=== PATIENT | male | born 1970 | race Caucasian/White ===

== ENCOUNTER 2018-11-18 08:04 | Emergency (ER) | payer OTHER ==
[~2018-11-18] VITALS: Ht 162.6 cm; Wt 88.0 kg
[2018-11-18 08:06] VITALS: BP 132/78
--- NOTE | 2018-11-18 08:08 | NUR ---
PT AMBULATES TO BED 12
--- NOTE | 2018-11-18 08:18 | NUR ---
c/o right knee pain and mid back pain x1 wk s/p squatting weights possible injury, swelling ---ambulatory with steady gait . DENIES N/V/D; SKIN IS PINK/WARM/DRY; AAOX4 WITH EVEN AND STEADY GAIT; LUNGS CLEAR BL; HR EVEN AND REGULAR; PT DENIES ANY FEVER, CP, SOB, OR COUGH AT THIS TIME; PATIENT STATES PAIN OF 7/10 AT THIS TIME; VSS; PATIENT POSITIONED FOR COMFORT; HOB ELEVATED; BEDRAILS UP X2; BED DOWN. ER MD MADE AWARE OF PT STATUS.
[2018-11-18] MEDS ORDERED: traMADol 50 MG TAB PO ONE (08:25)
[2018-11-18] MEDS ORDERED: KETOROLAC 60 MG/2 ML VIAL IM ONE (08:25)
[2018-11-18 09:21] VITALS: BP 132/78
== END 2018-11-18 09:22 | disposition home or self-care (01) ==
LOC: MED 08:04
DX: M17.0 Bilateral primary osteoarthritis of knee (principal); M16.0 Bilateral primary osteoarthritis of hip; M47.896 Other spondylosis, lumbar region
CPT/HCPCS: 96372; 99283; J1885

== ENCOUNTER 2018-12-04 16:28 | Emergency (ER) | payer OTHER ==
[~2018-12-04] VITALS: Ht 162.6 cm; Wt 90.8 kg
[2018-12-04 16:48] VITALS: BP 133/73
--- NOTE | 2018-12-04 17:26 | NUR ---
48/ M BIB SELF, C/O OCCASSIONAL NON RADIATING LT SIDED CHEST PAIN 02/04, PATIENT STATES YESTERDAY HE FELT HIS HEART RACE AFTER BEING ON THE TREADMILL AT A WALKING PACE, TODAY HE WAS LAYING IN BED WHEN HE FELT HIS HEART RACE AGAIN. DENIES PAIN AT THIS TIME, LOC, NVD, SOB, WEAKNESS, DIZZINESS, ABDOMINAL PAIN, NUMBNESS OR TINGLING. PATIENT IS AOX4, CLEAR SPEECH, STEADY GAIT, ATTACHED TO BEDSIDE MONITOR. SAFETY PRECAUTIONS IN PLACE.
[2018-12-04 17:57] LABS: BASOPHILS % (AUTO) 0.5 % (0.0-2.0); EOSINOPHILS # (AUTO) 0.2 K/uL (0-0.4); HEMATOCRIT 28.4 % (36-52); HEMOGLOBIN 8.4 g/dL (12.0-18.0); LYMPHOCYTES # (AUTO) 2.2 K/uL (2.0-11.5); LYMPHOCYTES % (AUTO) 29.2 % (20.5-51.1); MEAN CORPUSCULAR HEMOGLOBIN 19 pg (27-31); MEAN CORPUSCULAR HGB CONC 30 g/dL (33-37); MEAN CORPUSCULAR VOLUME 64.4 fL (80-94); MONOCYTES # (AUTO) 0.6 K/uL (0.8-1.0); MONOCYTES % (AUTO) 7.6 % (1.7-9.3); NEUTROPHILS # (AUTO) 4.6 K/uL (1.8-7.7); NEUTROPHILS % (AUTO) 59.7 % (42.2-75.2); PLATELET COUNT (AUTO) 271 K/uL (140-450); RED BLOOD CELL COUNT(AUTO) 4.42 MIL/uL (4.20-6.10); RED CELL DISTRIBUTION WIDTH 21.1 % (11.6-13.7); WHITE BLOOD COUNT (AUTO) 7.7 K/uL (4.8-10.8)
--- NOTE | 2018-12-04 18:50 | NUR ---
PATIENT DENIES CHEST PAIN AND SOB SINCE ARRIVAL.
[2018-12-04 19:01] LABS: ANION GAP 11.3 (8-16); CARBON DIOXIDE 26.3 mmol/L (21-32); CREATININE 0.7 mg/dL (0.7-1.3); POTASSIUM 3.6 mmol/L (3.5-5.1)
[2018-12-04 19:10] VITALS: BP 130/79
--- NOTE | 2018-12-04 19:10 | NUR ---
Patient discharged with v/s stable. Written and verbal after care instructions given and explained. Patient alert, oriented and verbalized understanding of instructions. Ambulatory with steady gait. All questions addressed prior to discharge. ID band removed. Patient advised to follow up with PMD. Rx of IRON given. Patient educated on indication of medication including possible reaction and side effects. Opportunity to ask questions provided and answered.
== END 2018-12-04 19:10 | disposition home or self-care (01) ==
LOC: MED 16:28
DX: R07.89 Other chest pain (principal); D64.9 Anemia, unspecified
CPT/HCPCS: 36415; 71045; 80048; 84484; 85025; 93005; 99284; Q0092

== ENCOUNTER 2021-03-15 15:03 | Emergency (ER) | payer OTHER ==
[~2021-03-15] VITALS: Ht 165.1 cm; Wt 90.7 kg
[2021-03-15 15:15] VITALS: BP 136/72
[2021-03-15 16:31] LABS: HEMATOCRIT 28.7 % (36-52); HEMOGLOBIN 8.4 g/dL (12.0-18.0); MEAN CORPUSCULAR HEMOGLOBIN 19 pg (27-31); MEAN CORPUSCULAR HGB CONC 29 g/dL (33-37); MEAN CORPUSCULAR VOLUME 66.5 fL (80-94); PLATELET COUNT (AUTO) 266 K/uL (140-450); RED BLOOD CELL COUNT(AUTO) 4.32 MIL/uL (4.20-6.10); RED CELL DISTRIBUTION WIDTH 26.6 % (11.6-13.7)
[2021-03-15 16:55] LABS: ALBUMIN 3.2 g/dL (3.4-5.0); ANION GAP 15.7 (8-16); CARBON DIOXIDE 23.7 mmol/L (21-32); CREATININE 0.9 mg/dL (0.6-1.3); EOSINOPHILS % (MANUAL) 2 % (0-4); LYMPHOCYTES % (MANUAL) 22 % (20-46); MONOCYTES % (MANUAL) 12 % (5-12); POTASSIUM 3.4 mmol/L (3.5-5.1); TOTAL BILIRUBIN 0.6 mg/dL (0.0-1.0)
[2021-03-15 17:48] VITALS: BP 143/65
== END 2021-03-15 17:47 | disposition home or self-care (01) ==
LOC: MED 15:03
DX: S09.90XA Unspecified injury of head, initial encounter (principal); F10.129 Alcohol abuse with intoxication, unspecified; F41.9 Anxiety disorder, unspecified; F17.210 Nicotine dependence, cigarettes, uncomplicated; W19.XXXA Unspecified fall, initial encounter; Y93.89 Activity, other specified; Y92.89 Other specified places as the place of occurrence of the external cause; Y99.8 Other external cause status
CPT/HCPCS: 36415; 70450; 80053; 85025; 99284

== ENCOUNTER 2021-04-11 06:35 | Emergency (ER) | payer OTHER ==
[~2021-04-11] VITALS: Ht 165.1 cm; Wt 88.0 kg
[2021-04-11 06:39] VITALS: BP 131/93
--- NOTE | 2021-04-11 06:40 | NUR ---
PT AMBULATORY TO BED 03
--- NOTE | 2021-04-11 06:50 | NUR ---
PATIENT PRESENTS TO ED WITH LOWER BACK PAIN X3 WEEKS. PT DENIES TRAUMA BUT HAS FACIAL GRIMACING. DENIES N/V/D; SKIN IS PINK/WARM/DRY; AAOX4 WITH EVEN AND STEADY GAIT; HR EVEN AND REGULAR; PT DENIES ANY FEVER, CP, SOB, OR COUGH AT THIS TIME; PATIENT STATES PAIN OF 8/10 AT THIS TIME; VSS; HOB ELEVATED; BEDRAILS UP X2; BED DOWN. ER MD MADE AWARE OF PT STATUS.
--- NOTE | 2021-04-11 06:51 | NUR ---
DR ARITA AT BEDSIDE EXAMINING PT
[2021-04-11] MEDS ORDERED: KETOROLAC 30 MG/ML VIAL IM ONE (06:55)
[2021-04-11] MEDS ORDERED: KETO10TA2 PO (06:57)
[2021-04-11] MEDS ORDERED: CYCL-711 PO (06:57)
[2021-04-11 07:12] VITALS: BP 131/93
--- NOTE | 2021-04-11 07:12 | NUR ---
Patient discharged with v/s stable. Written and verbal after care instructions given and explained. Patient alert, oriented and verbalized understanding of instructions. Ambulatory with steady gait. All questions addressed prior to discharge. ID band removed. Patient advised to follow up with PMD. Rx of FLEXERIL, TORADOL given. Patient educated on indication of medication including possible reaction and side effects. Opportunity to ask questions provided and answered.
== END 2021-04-11 07:12 | disposition home or self-care (01) ==
LOC: MED 06:35
DX: M54.5 Low back pain (principal)
CPT/HCPCS: 96372; 99283; J1885

== ENCOUNTER 2021-04-19 05:55 | Emergency (ER) | payer OTHER ==
[~2021-04-19] VITALS: Ht 165.1 cm; Wt 88.0 kg
[~2021-04-19 05:55] MED LIST: CYCL-711 PO; KETO10TA2 PO
[2021-04-19 05:58] VITALS: BP 140/78
--- NOTE | 2021-04-19 05:58 | NUR ---
TO BED AMBULATORY
--- NOTE | 2021-04-19 06:08 | NUR ---
50/M BIB SELF C/O BACK PAIN 10/10 FOR 2 WEEKS. PT STATES PAIN IS CONSTANT AND IS AGGRAVATED BY MOVEMENT. PT DENIES ANY RECENT TRAUMA. UPON ASSESSMENT, PT AAOX4 AND AMBULATORY. PMH: ANXIETY, GERD NKA
--- NOTE | 2021-04-19 06:13 | NUR ---
DR. ARITA AT BEDSIDE EXAMINING PATIENT.
[2021-04-19] MEDS ORDERED: PANT40EC PO (06:21)
[2021-04-19] MEDS ORDERED: MELO7.5T11 PO (06:21)
[2021-04-19] MEDS: KETOROLAC 60 MG/2 ML VIAL IM ONE (06:27)
[2021-04-19] MEDS: PANTOPRAZOLE 40 MG TABEC PO ONE (06:27)
[2021-04-19 06:35] VITALS: BP 140/78
--- NOTE | 2021-04-19 06:35 | NUR ---
Patient discharged with v/s stable. Written and verbal after care instructions given and explained. Patient alert, oriented and verbalized understanding of instructions. Ambulatory with steady gait. All questions addressed prior to discharge. ID band removed. Patient advised to follow up with PMD. Rx of MOBIC, PROTONIX given. Patient educated on indication of medication including possible reaction and side effects. Opportunity to ask questions provided and answered.
== END 2021-04-19 06:35 | disposition home or self-care (01) ==
LOC: MED 05:55
DX: M54.5 Low back pain (principal); F41.9 Anxiety disorder, unspecified; K21.9 Gastro-esophageal reflux disease without esophagitis; Z79.899 Other long term (current) drug therapy
CPT/HCPCS: 96372; 99283; J1885

== ENCOUNTER 2022-05-28 07:41 | Emergency (ER) | payer OTHER ==
[~2022-05-28] VITALS: Ht 170.2 cm; Wt 81.6 kg
[~2022-05-28 07:41] MED LIST changes: -KETO10TA2 PO; +MELO7.5T11 PO; +PANT40EC PO
[2022-05-28 07:46] VITALS: BP 129/78
--- NOTE | 2022-05-28 07:50 | NUR ---
PT AMBULATED TO ER BED 6
--- NOTE | 2022-05-28 08:15 | NUR ---
Pt in bed #6 coming from home ambulatry with steady gait c/o mid and lowr back pain for a couple months but as of recenly now he is unable to handle the pain. Rates pain 8/10 and is constant. Pt is A&Ox4. Skinintact. No taruma to back pt states. NKA. Hx of Anxiety. VSS. Bed in lowest position.
--- NOTE | 2022-05-28 08:29 | NUR ---
51YO MALE PT C/O SHARP 6/10 LOWER TO MID BACK PAIN XTODAY. PT STATES "TIGHT" PAIN WHEN TAKING DEEP BREATHES. PT DENIES RECENT INJURY OR HEAVY PHYSICAL ACTIVITY. PT ABLE TO BEND AT WAIST WITH SOME DISCOMFORT. PT NON TENDER TO TOUCH AND PRESENTS WITH NO VISIBLE INJURY AND HAS STEADY GAIT. PT REPORTS CHRONIC BACK PAIN AND TAKES NAPROXEN, HAD NO RELIEF THIS MORNING. DENIES N/V/D OR CHEST PAIN AT THIS TIME. PT AAOX4 , NO VISIBLE DISTRESS, RESPIRATIONS EVEN AND UNLABORED. NHX NKA
[2022-05-28] MEDS ORDERED: CYCL-711 PO (08:53)
[2022-05-28] MEDS ORDERED: LID5T TP (08:53)
[2022-05-28] MEDS: KETOROLAC 60 MG/2 ML VIAL IM ONE (08:59)
--- NOTE | 2022-05-28 09:00 | NUR ---
The patient's care was reviewed and supervised by [facility], RN.
[2022-05-28 09:07] VITALS: BP 123/61
--- NOTE | 2022-05-28 09:07 | NUR ---
Patient discharged with v/s stable. Written and verbal after care instructions FOR TRIGGER POINT INJECTION AND CHRONIC BACK PAIN given and explained. Patient alert, oriented and verbalized understanding of instructions. Ambulatory with steady gait. All questions addressed prior to discharge. ID band removed. Patient advised to follow up with PMD. Rx of FLEXERIL AND LIDODERM 5% PATCH given. Opportunity to ask questions provided and answered.
== END 2022-05-28 09:07 | disposition home or self-care (01) ==
LOC: MED 07:41
DX: M54.6 Pain in thoracic spine (principal)
CPT/HCPCS: 96372; 99283; J1885

== ENCOUNTER 2022-10-13 15:59 | Emergency (ER) | payer OTHER ==
[~2022-10-13] VITALS: Ht 165.1 cm; Wt 85.7 kg
[~2022-10-13 15:59] MED LIST changes: +LID5T TP
[2022-10-13 16:11] VITALS: BP 117/72
[2022-10-13 16:46] LABS: BASOPHILS % (AUTO) 0.4 % (0.0-2.0); EOSINOPHILS # (AUTO) 0.1 K/uL (0-0.4); EOSINOPHILS % (AUTO) 1.6 % (0.0-4.0); HEMATOCRIT 42.2 % (36-52); HEMOGLOBIN 14.2 g/dL (12.0-18.0); LYMPHOCYTES # (AUTO) 1.8 K/uL (2.0-11.5); MEAN CORPUSCULAR HEMOGLOBIN 29 pg (27-31); MEAN CORPUSCULAR HGB CONC 34 g/dL (33-37); MEAN CORPUSCULAR VOLUME 85.8 fL (80-94); MONOCYTES % (AUTO) 12.8 % (1.7-9.3); NEUTROPHILS # (AUTO) 4.9 K/uL (1.8-7.7); NEUTROPHILS % (AUTO) 62.2 % (42.2-75.2); PLATELET COUNT (AUTO) 290 K/uL (140-450); RED BLOOD CELL COUNT(AUTO) 4.92 MIL/uL (4.20-6.10); RED CELL DISTRIBUTION WIDTH 15.6 % (11.6-13.7); WHITE BLOOD COUNT (AUTO) 7.8 K/uL (4.8-10.8)
[2022-10-13 17:05] LABS: ALBUMIN 3.4 g/dL (3.4-5.0); ANION GAP 10.8 (8-16); ASPARTATE AMINOTRANSFERASE 23 U/L (15-37); CARBON DIOXIDE 30.4 mmol/L (21-32); CHLORIDE 104 mmol/L (98-107); CREATININE 0.9 mg/dL (0.6-1.3); GFR ARICAN-AMERICAN 114 mL/min (>90); GLUCOSE 95 mg/dL (74-106); POTASSIUM 4.2 mmol/L (3.5-5.1); SODIUM SERUM 141 mmol/L (136-145); TOTAL BILIRUBIN 0.4 mg/dL (0.0-1.0); UREA NITROGEN, BLOOD 14 mg/dL (7-18)
--- NOTE | 2022-10-13 17:53 | NUR ---
FLU, COVID SWABS DONE.
--- NOTE | 2022-10-13 17:57 | NUR ---
PT AMBULATED TO BED 11
--- NOTE | 2022-10-13 17:59 | NUR ---
52/M WALKED IN C/O LEFT SIDED CP ONSET 3 HRS AGO. DENIES DIZZINESS OR RADIATING. AAO4, AMBULATORY. PT REPORTS ALCOHOLISM AND STATES LAST ETOH WAS 17 DAYS AGO. ON MONITOR, DENIES ANY CHEST PAIN AT THIS TIME. PMH: ALCOHOLISM, ANXIETY
[2022-10-13 18:16] VITALS: BP 115/60
--- NOTE | 2022-10-13 18:48 | NUR ---
Patient discharged with v/s stable. Written and verbal after care instructions given and explained. Patient verbalized understanding. Ambulatory with steady gait. All questions addressed prior to discharge. Advised to follow up with PMD.
== END 2022-10-13 18:48 | disposition home or self-care (01) ==
LOC: MED 15:59
DX: I49.3 Ventricular premature depolarization (principal); Z20.822 Contact with and (suspected) exposure to COVID-19; Z79.899 Other long term (current) drug therapy
CPT/HCPCS: 36415; 71045; 80053; 81002; 84484; 85025; 93005; 99285

== ENCOUNTER 2022-11-16 07:50 | Emergency (ER) | payer OTHER ==
[~2022-11-16] VITALS: Ht 172.7 cm; Wt 83.9 kg
[2022-11-16 08:00] VITALS: BP 115/76
--- NOTE | 2022-11-16 08:08 | NUR ---
52 Y/O MALE BIB SELF C/O DIZZINESS AND SENSATION OF THE ROOM SPINNING WHEN HE MOVES HIS HEAD X3 DAYS, DENIES ANY NEW MEDICATION, DENIES ANY PAIN, HEAD INJURY. NKA PMH: ANXIETY
[2022-11-16] MEDS ORDERED: MECLIZINE 25 MG TAB PO ONE (08:15)
[2022-11-16] MEDS ORDERED: ONDANSETRON 4 MG ODT PO ONE (08:15)
[2022-11-16 08:28] LABS: BASOPHILS % (AUTO) 0.6 % (0.0-2.0); EOSINOPHILS # (AUTO) 0.1 K/uL (0-0.4); EOSINOPHILS % (AUTO) 2.3 % (0.0-4.0); HEMATOCRIT 42.3 % (36-52); HEMOGLOBIN 13.9 g/dL (12.0-18.0); LYMPHOCYTES # (AUTO) 1.6 K/uL (2.0-11.5); LYMPHOCYTES % (AUTO) 24.5 % (20.5-51.1); MEAN CORPUSCULAR HEMOGLOBIN 28 pg (27-31); MEAN CORPUSCULAR HGB CONC 33 g/dL (33-37); MEAN CORPUSCULAR VOLUME 83.7 fL (80-94); MONOCYTES # (AUTO) 0.5 K/uL (0.8-1.0); MONOCYTES % (AUTO) 7.7 % (1.7-9.3); NEUTROPHILS # (AUTO) 4.3 K/uL (1.8-7.7); NEUTROPHILS % (AUTO) 64.9 % (42.2-75.2); PLATELET COUNT (AUTO) 234 K/uL (140-450); RED BLOOD CELL COUNT(AUTO) 5.06 MIL/uL (4.20-6.10); RED CELL DISTRIBUTION WIDTH 15.6 % (11.6-13.7); WHITE BLOOD COUNT (AUTO) 6.6 K/uL (4.8-10.8)
[2022-11-16 09:14] LABS: ALBUMIN 3.1 g/dL (3.4-5.0); ANION GAP 12.2 (8-16); CREATININE 0.9 mg/dL (0.6-1.3); POTASSIUM 4.2 mmol/L (3.5-5.1); TOTAL BILIRUBIN 0.5 mg/dL (0.0-1.0)
[2022-11-16] MEDS ORDERED: MECL-303 PO (09:44)
--- NOTE | 2022-11-16 09:56 | NUR ---
Patient discharged with v/s stable. Written and verbal after care instructions ABOUT VERTIGO given and explained. Patient alert, oriented and verbalized understanding of instructions. Ambulatory with steady gait. All questions addressed prior to discharge. ID band removed. Patient advised to follow up with PMD. Rx of MECLEZINE given. Patient educated on indication of medication including possible reaction and side effects. Opportunity to ask questions provided and answered.
== END 2022-11-16 09:56 | disposition home or self-care (01) ==
LOC: MED 07:50
DX: H81.10 Benign paroxysmal vertigo, unspecified ear (principal); R42 Dizziness and giddiness; F41.9 Anxiety disorder, unspecified; Z79.899 Other long term (current) drug therapy
CPT/HCPCS: 36415; 71045; 80053; 85025; 93005; 99283; J8597; Q0162